=== PATIENT | female | born 1945 | race Caucasian/White ===

== ENCOUNTER 2023-03-12 05:24 | Emergency (ER) | payer MEDICARE, OTHER, SELFPAY ==
[2023-03-12] VITALS (7 sets, daily range): BP systolic 178–233; BP diastolic 66–108; BMI 41.0
--- NOTE | 2023-03-12 06:09 | ED.GENMED ---
History of Present Illness
General
Chief Complaint: Headache
Source: patient
Exam Limitations: none
Time Seen by Provider: 03/12/23 05:55
Nursing documentation reviewed up to this point in time: agreed with
Travel History
Have you had any contact with someone who has COVID-19?: No
Do you have any symptoms of coronavirus? Fever > 100 degrees, chills, cough, shortness of breath, sore throat, loss of taste or smell, muscle aches, or headache?: No
History of Present Illness
History of Present Illness:
Patient with history of hypertension on losartan, presents to ED secondary to intermittent left-sided headache over the past 2 days. Patient took Tylenol yesterday morning secondary to headache, which finally resolved around 3 PM yesterday
afternoon. This morning, patient once again woke up with similar left-sided headache, which has not been relieved with Tylenol, taken approxi-1 hour ago. Denies blurred vision. Denies dizziness. Denies nausea or vomiting. Denies difficulty with
speech. Denies difficulty with ambulating. Denies loss of sensation or weakness. Denies recent illness. Denies recent change in medications or diet. Patient had been on other blood pressure medications, which had been discontinued secondary to
side effects.
Past History
Past History
ED Past Medical History: GERD, HTN, Hypercholesterolemia, Hypothyroidism, Other (bilateral lower extremity edema), Other (iron deficiency anemia) and Other (pneumonia in 2009)
ED Past Surgical History: Cholecystectomy, Gynecological (partial hysterectomy) and Other (thyroidectomy)
Social History
Tobacco: Non-smoker
Alcohol: Occasional
Drug: None
Personal:
Living: with family
Family History
Family History: Other (stroke in mother)
Review of Systems
Review of Systems
Allergies reviewed?: Yes
All Other Systems: ROS reviewed and negative except as documented in HPI and ROS
Constitutional: Reports no symptoms; Denies fever
EENT: Reports no symptoms
Respiratory: Reports no symptoms; Denies trouble breathing
Cardiac: Reports no symptoms; Denies chest pain
ABD/GI: Reports no symptoms; Denies nausea or vomiting
: Reports no symptoms
Musculoskeletal: Reports no symptoms
Skin: Reports no symptoms
Neurological: Reports headache; Denies dizzy or weakness
Phy Exam
Physical Exam
Physical Exam:
Physical Exam
General: mild distress, not acutely ill. afebrile. hypertensive.
Head: nc/at. eomi
Neck: supple. normal range of motion. no carotid bruit.
Heart: s1/s2 regular rate and rhythm, no murmur. equal radial pulses.
Lungs: no acute respiratory distress. clear bilaterally
Abdomen: normal bowel sounds. not tender.
Neuro: alert and oriented. no focal neurological deficits
Skin: no rash
Psychiatric: well kept. interactive and cooperative
Extremities: LE b/l edema, nonpitting. no calf tenderness.
Course
Orders/Labs/Results
Orders:
Orders
03/12/23 06:04
CT Head W/o Iv Contrast Urgent
Comment:
Reason For Exam: headache w severe hypertension
HydrALAZINE [Apresoline] 10 mg IV NOW STA
03/12/23 06:05
Electrocardiogram (*1) Urgent
Reason for Study: Hypertension, Benign
EKG- Treatment ONCE
03/12/23 06:19
Complete Blood Count/No Diff Urgent
Comprehensive Metabolic Panel Urgent
Magnesium Urgent
TSH Urgent
Troponin I Urgent
03/12/23 08:01
HydrALAZINE [Apresoline] 10 mg IV NOW STA
Abnormal Lab Results
03/12/23
06:19
RBC 3.97 L 10^6/uL
(4.20-5.40)
MCH 31.2 H pg
(27.0-31.0)
Glucose 114 H mg/dl
(70-99)
Total Protein 6.0 L g/dl
(6.3-8.2)
03/12/23 06:19
03/12/23 06:19
Vital Signs
Initial and Last Documented VS:
Initial Vital Signs
Pulse Resp BP Pulse Ox
69 14 214/108 97
03/12/23 05:26 03/12/23 05:26 03/12/23 05:26 03/12/23 05:26
Last Documented Vital Signs
Temp Pulse Resp BP Pulse Ox
98 F 66 19 178/84 97
03/12/23 08:50 03/12/23 08:50 03/12/23 08:50 03/12/23 08:50 03/12/23 08:50
MDM/Problems Addressed
MDM/Problems Addressed:
History and exam concerning for hypertensive urgency, potentially worsened by presenting headache. Fortunately, patient remains neurologically intact, without significant distress. However, as patient's blood pressure is unable to be obtained on
her upper arm, but is obtained on her forearm, it is difficult to ascertain whether or not her presenting elevated blood pressure is in fact reflective of her true blood pressure. As such, hesitant to aggressively treat blood pressure at this time.
Will obtain CT head and blood work. Will monitor patient closely.
CT head: no acute findings.
Patient reports mild improvement in symptoms during observation, along with improved blood pressure. As such, decision made to discharge patient home at this time, to the care of her spouse, without any further treatment. Patient will be advised
daily log of blood pressure and follow-up with her primary care physician for reevaluation. Patient expresses understanding at time of discharge.
*EKG
Interpreted by ED Provider?: Yes
EKG Intrepretation Date: 03/12/23
Heart Rate: 66
Rate: normal
Rhythm: sinus
[place]: normal axis
*Critical Care Note
Total Time (30-74mins, 75-104mins- exclusive of procedures): Not Applicable
ED Attending Note
-
Portions of this chart may have been created with voice recognition software.� Occasional wrong word or��sound alike� substitutions may have occurred due to the inherent limitations of voice recognition software.
Discharge Plan
Departure
Patient Disposition: Home (Routine Discharge)
Date of Disposition: 03/12/23
Time of Disposition: 08:24
Patient with high blood pressure during this ER visit?: Yes
Condition: Good
Discharge Problem:
Hypertension, Headache
Instructions: High Blood Pressure (DC), Headache, Adult (DC)
Prescriptions:
No Action
pantoprazole 20 MG tablet,delayed release (DR/EC)
20 mg PO DAILY
potassium chloride 10 MEQ tablet extended release
10 meq PO DAILY
levothyroxine 50 MCG tablet
50 mcg PO DAILY
ferrous sulfate [FeroSul] 325 MG tablet
325 mg PO BID
vitamin E (dl, acetate) 400 UNITS capsule
400 units PO DAILY
multivitamin with folic acid [Tab-A-Maximino] 1 TABLET tablet
1 tab PO DAILY
atorvastatin 40 MG tablet
40 mg PO QPM 30 Days Qty: 30 0RF
metoprolol tartrate 25 MG tablet
25 mg PO BID 30 Days Qty: 60 0RF
losartan 25 MG tablet
50 mg PO DAILY
Referrals:
Zbigniew Torres MD [Family Provider] -
Activity Restrictions/Additional Instructions:
As discussed, please follow-up with your primary care physician for reevaluation.
Interventions
Interventions:
*Risk Screen - Suicide Last Done: 03/12/23 05:26
*General Assessment Last Done: 03/12/23 05:26
*Neglect/Abuse Screening Last Done: 03/12/23 05:26
ED- Fall Risk Assessment Last Done: 03/12/23 08:50
*ED COVID-19 Vaccine History Last Done: 03/12/23 05:38
*Nursing Disposition Last Done: 03/12/23 08:50
ED- Neurological Assessment Last Done: 03/12/23 06:27
Discharge Date and Time
Discharge Date/Time: 03/12/23 08:50
[2023-03-12] MEDS: APRESOLINE 10 MG IV (06:21)
[2023-03-12 06:35] LABS: Hematocrit 37.1 % (37.0-47.0); Hemoglobin 12.4 g/dL (12.0-16.0); Mean Corp Hgb Conc. 33.4 g/dL (33.0-37.0); Mean Corpuscular Hgb 31.2 pg (27.0-31.0); Mean Corpuscular Volume 93.5 fL (81.0-99.0); Mean Platelet Volume 9.4 fL (7.4-10.4); Platelet Count 187 10^3/uL (130-400); Red Blood Cell Count 3.97 10^6/uL (4.20-5.40); Red Cell Dist. Width 13.5 % (11.5-14.5)
[2023-03-12 06:44] LABS: ALT (SGPT) 19 U/L (0-35); AST (SGOT) 28 U/L (14-36); Albumin 3.5 g/dl (3.5-5.0); Alkaline Phosphatase 75 U/L (38-126); Blood Urea Nitrogen 17 mg/dl (7-17); Calcium 9.3 mg/dl (8.4-10.2); Carbon Dioxide 22 mmol/L (22-30); Chloride 107 mmol/L (98-107); Estimated Creatinine Clearance 61 ml/min; Glucose 114 mg/dl (70-99); Magnesium 1.8 mg/dl (1.6-2.3); Potassium 4.2 mmol/L (3.5-5.1); Sodium 138 mmol/L (135-145); Total Bilirubin 0.6 mg/dl (0.2-1.3); eGFR > 60.00
[2023-03-12 06:54] LABS: Troponin I < 0.012 ng/ml
[2023-03-12 07:15] LABS: TSH 2.56 uIU/ml (0.47-4.68)
== END 2023-03-12 08:50 | disposition home or self-care (01) ==
LOC: EMR 05:24
PROVIDERS: EMERGENCY PHYSICIAN Emergency Medicine; FAMILY PHYSICIAN Internal Medicine; REFERRING PHYSICIAN Internal Medicine Cardiovascular Disease
DX: R51.9 Headache, unspecified (principal); K21.9 Gastro-esophageal reflux disease without esophagitis; I12.9 Hypertensive chronic kidney disease with stage 1 through stage 4 chronic kidney disease, or unspecified chronic kidney disease; N18.9 Chronic kidney disease, unspecified; E03.9 Hypothyroidism, unspecified; E78.00 Pure hypercholesterolemia, unspecified; D50.9 Iron deficiency anemia, unspecified; M19.90 Unspecified osteoarthritis, unspecified site; Z87.01 Personal history of pneumonia (recurrent); Z96.653 Presence of artificial knee joint, bilateral; Z90.49 Acquired absence of other specified parts of digestive tract; Z88.3 Allergy status to other anti-infective agents; Z88.0 Allergy status to penicillin
CPT/HCPCS: 99284; 96374; 70450; 80053; 83735; 84443; 84484; 85027; 93005

== ENCOUNTER 2023-03-13 12:08 | Emergency (ER) | payer MEDICARE, OTHER, SELFPAY ==
[2023-03-13 12:10] VITALS: BP 149/96
--- NOTE | 2023-03-13 12:56 | ED.GENMED ---
History of Present Illness
General
Chief Complaint: Skin Problem
Time Seen by Provider: 03/13/23 12:37
Travel History
Have you had any contact with someone who has COVID-19?: No
Do you have any symptoms of coronavirus? Fever > 100 degrees, chills, cough, shortness of breath, sore throat, loss of taste or smell, muscle aches, or headache?: No
History of Present Illness
History of Present Illness:
77-year-old female presents the emergency department for evaluation of left foot pain and swelling. She was seen in the emergency department yesterday due to elevated blood pressure, felt as though her left foot was somewhat discomforted when she
left the ER yesterday but did not tell anyone. Upon awakening today noticed redness and severe pain, was unable to bear weight. Denies any associated fevers or chills. Denies any traumatic injuries. No known history of gout. Denies high red
meat or high alcohol diet
Past History
Past History
ED Past Medical History: GERD, HTN, Hypercholesterolemia, Hypothyroidism, Other (bilateral lower extremity edema), Other (iron deficiency anemia) and Other (pneumonia in 2009)
ED Past Surgical History: Cholecystectomy, Gynecological (partial hysterectomy) and Other (thyroidectomy)
Social History
Tobacco: Non-smoker
Alcohol: Occasional
Drug: None
Personal:
Living: with family
Family History
Family History: Other (stroke in mother)
Review of Systems
Review of Systems
Allergies reviewed?: Yes
All Other Systems: ROS reviewed and negative except as documented in HPI and ROS
Phy Exam
Physical Exam
Physical Exam:
GEN: Well appearing, NAD, WDWN
HEENT: Oral mucosa moist, no scleral icterus
Cardiac: Regular rate
Lung: No respiratory distress, no tachypnea
MSK: Redness and swelling to the left first metatarsal phalangeal joint, exquisitely tender to palpation, no open wounds or lymphangitic streaking
Skin: Good color, no pallor or jaundice, no rashes
Neuro: AO x3, moves all extremities freely
Psych: Calm, cooperative
Course
Vital Signs
Initial and Last Documented VS:
Initial Vital Signs
Temp Pulse Resp BP Pulse Ox
98.7 F 76 18 149/96 99
03/13/23 12:10 03/13/23 12:10 03/13/23 12:10 03/13/23 12:10 03/13/23 12:10
Last Documented Vital Signs
Temp Pulse Resp BP Pulse Ox
98.7 F 76 18 149/96 99
03/13/23 12:10 03/13/23 12:10 03/13/23 12:10 03/13/23 12:10 03/13/23 12:10
MDM/Problems Addressed
MDM/Problems Addressed:
Unclear if this could be gouty arthritis versus cellulitis. She has no open wounds to suggest a source of cellulitis. I did discuss the potential for aspiration of the joint with the patient however this would require a puncture wound directly
through the erythematous tissue and if this is cellulitis could potentially introduce septic arthritis thus I do not feel this is appropriate. Will start the patient on colchicine given her normal renal function from yesterday as well as
doxycycline for antibiotics, patient is a primary care follow-up tomorrow
*Critical Care Note
Total Time (30-74mins, 75-104mins- exclusive of procedures): Not Applicable
ED Attending Note
-
Portions of this chart may have been created with voice recognition software.� Occasional wrong word or��sound alike� substitutions may have occurred due to the inherent limitations of voice recognition software.
Discharge Plan
Departure
Patient Disposition: Home (Routine Discharge)
Date of Disposition: 03/13/23
Time of Disposition: 12:56
Patient with high blood pressure during this ER visit?: Yes
Discharge Problem:
Swelling of first metatarsophalangeal (MTP) joint of left foot
Instructions: Gout (DC)
Prescriptions:
New
colchicine 0.6 mg tablet
0.6 mg PO DAILY Qty: 12 0RF
Rx Instructions:
1.2mg PO once, then 0.6mg PO one hour later; continue 0.6mg PO qd PRN foot pain
doxycycline hyclate 100 mg tablet
100 mg PO BID 7 Days Qty: 14 0RF
No Action
pantoprazole 20 MG tablet,delayed release (DR/EC)
20 mg PO DAILY
potassium chloride 10 MEQ tablet extended release
10 meq PO DAILY
levothyroxine 50 MCG tablet
50 mcg PO DAILY
ferrous sulfate [FeroSul] 325 MG tablet
325 mg PO BID
vitamin E (dl, acetate) 400 UNITS capsule
400 units PO DAILY
multivitamin with folic acid [Tab-A-Maximino] 1 TABLET tablet
1 tab PO DAILY
atorvastatin 40 MG tablet
40 mg PO QPM 30 Days Qty: 30 0RF
metoprolol tartrate 25 MG tablet
25 mg PO BID 30 Days Qty: 60 0RF
losartan 25 MG tablet
50 mg PO DAILY
Referrals:
Zbigniew Torres MD [Family Provider] -
Activity Restrictions/Additional Instructions:
As we discussed it is not clear whether this swelling and redness represents acute gout versus a skin infection. We are starting you on antibiotics plus colchicine which is the treatment for gout. Please continue to follow-up with your primary
care physician tomorrow for reevaluation
Interventions
Interventions:
*Risk Screen - Suicide Last Done: 03/13/23 12:15
*General Assessment Last Done: 03/13/23 12:15
*Neglect/Abuse Screening Last Done: 03/13/23 12:15
ED-Skin Assessment Last Done: 03/13/23 13:04
--- NOTE | 2023-03-13 13:30 | EDRN ---
This RN went to room to assess pt and pt was not in room so, this RN checked colette SORIA and he admitted he had discharged this pt. This RN did not see this pt prior to discharge.
== END 2023-03-13 13:30 | disposition home or self-care (01) ==
LOC: EMR 12:08
PROVIDERS: EMERGENCY PHYSICIAN Emergency Medicine; FAMILY PHYSICIAN Internal Medicine
DX: M79.89 Other specified soft tissue disorders (principal); M79.672 Pain in left foot; I10 Essential (primary) hypertension
CPT/HCPCS: 99283